=== PATIENT | male | born 1945 | race Two or more races ===

== ENCOUNTER 2017-11-08 08:49 | Emergency (ER) | payer MEDICARE, BC ==
[2017-11-08 09:06] VITALS: TEMP 97.5
--- NOTE | 2017-11-08 09:29 | ED ---
General Adult HPI - General Chief complaint: Extremity Problem,Nontraumatic Stated complaint: Possible DVT Time Seen by Provider: 11/08/17 09:13 Source: patient, RN notes reviewed Mode of arrival: wheelchair Limitations: no limitations - History of Present Illness Initial comments: Patient is a 72-year-old male who presents emergency room today with a chief complaint of pain to the right hip area over the last few weeks. He states it' s gotten increased intensity over the last week. Denies any injury or trauma. Does have chronic issue with his hips and goes to a chiropractor for adjustment. Had x-rays obtained there and was told that they look good. Patient states he feels pain in the right hip area radiates down towards the right knee. Denies any swelling. States he looked up on the Internet this morning and his symptoms and was concerned about blood clot. Patient denies any other complaints or associated symptoms. He doesn't pain is worse in certain movements. Patient denies any recent fever, chills, shortness of breath , chest pain, back pain, headaches or visual changes, or any other complaints. - Related Data Home Medications Medication Instructions Recorded Confirmed Cholecalciferol [Vitamin D3] 4,000 unit PO DAILY 03/10/16 11/08/17 Omeprazole [PriLOSEC] 20 mg PO Q48H 03/10/16 11/08/17 amLODIPine BESYLATE [Norvasc] 10 mg PO DAILY 03/10/16 11/08/17 Tamsulosin [Flomax] 0.4 mg PO Q48H 11/08/17 11/08/17 Allergies Allergy/AdvReac Type Severity Reaction Status Date / Time No Known Allergies Allergy Verified 11/08/17 09:18 Review of Systems ROS Statement: Those systems with pertinent positive or pertinent negative responses have been documented in the HPI. ROS Other: All systems not noted in ROS Statement are negative. Past Medical History Past Medical History: Deep Vein Thrombosis (DVT), GERD/Reflux, Hyperlipidemia, Hypertension Additional Past Medical History / Comment(s): hx migraines, elevated PSA History of Any Multi-Drug Resistant Organisms: None Reported Past Surgical History: Appendectomy, Hernia Repair, Tonsillectomy Past Anesthesia/Blood Transfusion Reactions: No Reported Reaction Past Psychological History: No Psychological Hx Reported Smoking Status: Former smoker Past Alcohol Use History: None Reported Past Drug Use History: None Reported - Past Family History Sister(s) Family Medical History: Cancer Father Family Medical History: Cancer General Exam - General Exam Comments Initial Comments: General: The patient is awake and alert, in no distress, and does not appear acutely ill. Eye: Pupils are equal, round and reactive to light, extra-ocular movements are intact. No nystagmus. There is normal conjunctiva bilaterally. No signs of icterus. Ears, nose, mouth and throat: There are moist mucous membranes and no oral lesions. Neck: The neck is supple, there is no tenderness or JVD. Musculoskeletal: Patient shows good range of motion. Normal appearance of the right hip. Does have tenderness over both the lateral and medial aspect. Tenderness with a logroll maneuver. Sensation intact pulses equal bilaterally 2 +. Normal appearance of the lumbar spine no step-offs deformities or pain on palpation. Neurological: A&O x 3. CN II-XII intact, There are no obvious motor or sensory deficits. Coordination appears grossly intact. Speech is normal. Skin: Skin is warm and dry and no rashes or lesions are noted. Psychiatric: Cooperative, appropriate mood & affect, normal judgment. Limitations: no limitations Course Vital Signs 11/08/17 09:03 Temperature 97.5 F L Pulse Rate 80 Respiratory 20 Rate Blood Pressure 143/78 O2 Sat by Pulse 99 Oximetry Medical Decision Making - Medical Decision Making Patient reexamined at this time shows no signs of distress. He is resting comfortable. Ultrasound is negative for any evidence of DVT. Does show a prominent lymph node. Results were discussed with the patient. He is advised follow up his family doctor. Advised follow-up orthopedics and well. Patient advised continued anti-inflammatories until that time. Advised return for any other concerns. He states understanding and is in agreement Disposition Clinical Impression: Right hip pain Disposition: HOME SELF-CARE Condition: Good Instructions: Hip Pain (ED) Additional Instructions: Please follow-up with orthopedics as discussed. Please follow-up the family doctor about lymph nodes seen on ultrasound today. Please continue anti- inflammatories. Please return to emergency room symptoms increase or worsen or for any other concerns. Referrals: Siomara James MD [Primary Care Provider] - 1-2 days Time of Disposition: 11:18
--- NOTE | 2017-11-08 10:26 | US ---
EXAMINATION TYPE: US venous doppler duplex LE RT DATE OF EXAM: 11/08/2017 10:04 AM COMPARISON: NONE CLINICAL HISTORY: Pain. 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 VESSELS IMAGED: Common Femoral Vein Deep Femoral Vein Greater Saphenous Vein * Femoral Vein Popliteal Vein Small Saphenous Vein * Proximal Calf Veins (* superficial vessels) Right Leg: Negative for DVT. At patient's complaint of right groin pain a prominent lymph node is im aged = 3.7 x 2.2 x 0.9cm. Grayscale, color doppler, spectral doppler imaging performed of the deep veins of the right lower ext remity. There is normal flow, compressibility, vascular waveforms. IMPRESSION: No ultrasound evidence for acute DVT in the right lower extremity. Prominent right lymph node felt present with cortical thinning presumed reactive.
[2017-11-08 11:27] VITALS: BP 157/84; PULSE 83; RESP 18
== END 2017-11-08 11:26 | disposition home or self-care (01) ==
LOC: EC 08:49
DX: M25.551 Pain in right hip (principal); K21.9 Gastro-esophageal reflux disease without esophagitis; I10 Essential (primary) hypertension; Z86.718 Personal history of other venous thrombosis and embolism; Z87.891 Personal history of nicotine dependence; Z79.899 Other long term (current) drug therapy
CPT/HCPCS: 99283

== ENCOUNTER → 2018-01-15 | Outpatient (CLI) | payer MEDICARE, BC ==
--- NOTE | 2018-01-17 07:57 | MR ---
Right hip MRI HISTORY: Right hip pain Correlation to plain film 01/14/2018 Multiplanar multisequence imaging obtained through the pelvis and right hip, small [id number] imag es obtained through the right hip There is a right hip joint effusion. Cystic focus is present adjacent to the left acetabular labrum, I question some increased signal within the right acetabular labrum posteriorly. Some mild thinning o f articular cartilage is suspected, reactive marrow edema is present within the acetabulum Nodular foci present within an enlarged prostate are noted incidentally, trabeculated appearance of t he urinary bladder may be due to chronic outlet obstruction. Extensive diverticular change noted in t he sigmoid colon. Cystic changes in the seminal vesicles. IMPRESSION: Difficult to exclude acetabular labral tear. There is a joint effusion. 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 Diverticulosis. Additional findings above.
== END | disposition home or self-care (01) ==
LOC: RADMRIMAIN 09:38
PROVIDERS: ATTEND Orthopaedic Surgery
DX: M25.451 Effusion, right hip (principal); M85.68 Other cyst of bone, other site